=== PATIENT | female | born 1940 | race Caucasian/White ===

== ENCOUNTER → 2017-10-05 | Outpatient (CLI) | payer OTHER ==
[~2017-10-05] MED LIST: ACET325 PO; ACET325S PR; ACYC800 PO; ALBU.083IS IH; ALBU8HFA2 INH; ALBU90OI6 INH; ALBU90OI61 INH; ARTTEAOPSB OP; ASCO500 PO; Albuterol2.5 MG/0.5 INH; Artificial Tear15 M4 BOTHEYES; BACL10 PO; BIOTENE PBF473 ML MM; BUME1 PO; CALCIT950 PO; CALCIUM CITRAT1 EAC4 PO; CARB100ER PO; CARB200 PO; CARBLEV250 PO; CEPH500 PO; CETI10 PO; CHOL10002 PO; CIPR500 PO; CLON1 PO; COD LIVER OIL1 EACH PO; CYAN1000 PO; CYCL10 PO; Carbidopa-Levo1 EAC2 PO; Cranberry500 MG PO; DOCU100 PO; FAMO20 PO; FIBER GUMMIES1 EACH PO; FURO20 PO; FURO40 PO; GABA100 PO; GAVILAX17 GM PO; HYDACE5 PO; HYDCOR1TC TOP; HYDR1TAB94 PO; K-Phos Origina500 MG PO; L-LYSINE500 MG PO; LAVAP17G PO; LIDOCAINE1 EACH TOP; LISI5 PO; LO-DOSE ASPIRIN81 MG PO; Levaquin500 MG PO; METO2.5 PO; METO25ER PO; MULVITMINF PO; Mucinex600 MG; NITRSPRAY SL; OMEP20ER PO; OPTLUBOPO OP; Opcon-A Eye Dro15 M1 BOTHEYES; PAROEX473 ML MM; POLY17UD PO; POTA10T PO; POTCHL10ER PO; PROC5 PO; PROP30DR; ROPI1 PO; SENN187 PO; SERT50 PO; TOCO1000 PO; TRAM50 PO; TRIM100 PO; Ultram50 MG PO; VIT1CAPS12; VITAMIN D-32000 UNI1 PO; Ventolin Soln3 ML INH; Vitamin C100 M1 PO; XARELTO20 MG PO; [UNRECOGNIZED DRUG - OTHER]
[2017-10-05 14:52] LABS: Bilirubin, Urine Neg (Neg); Blood, Urine 2+ (Neg); Glucose Qualitative, Urine Neg (Neg); Ketones, Urine 1+ (Neg); Leukocyte Esterase, Urine 1+ (Neg); Nitrite, Urine Neg (Neg); Protein, Urine Neg (Neg); Urobilinogen, Urine NORM (Normal)
[2017-10-05 14:58] LABS: Appearance, Urine Clear (Clear); Color, Urine Yellow (P-Yellow)
[2017-10-05 14:59] LABS: Red Blood Cells, Urine 0-2 /hpf (0-2)
[2017-10-05 15:00] LABS: Bacteria Mod /hpf; Mucus Light (0-Heavy); Squamous Epithelial Cells Few /hpf (Few)
== END | disposition home or self-care (01) ==
LOC: LAB RH 13:45 → LAB SHORT 13:45 → EDSTATUS 10-06 10:32
PROVIDERS: Legal Medicine
DX: N39.0 Urinary tract infection, site not specified (principal)
CPT/HCPCS: 81001; 87077; 87086; 87186

== ENCOUNTER 2018-01-29 03:14 | Inpatient (IN) | payer OTHER ==
[~2018-01-29] VITALS: Ht 172.7 cm; Wt 65.8 kg
[~2018-01-29 03:14] MED LIST changes: -DOCU100 PO; -K-Phos Origina500 MG PO; -Levaquin500 MG PO; -Mucinex600 MG; +Opcon-A Eye Dro15 M1; -Opcon-A Eye Dro15 M1 BOTHEYES; -SENN187 PO
[2018-01-29] MEDS ORDERED: METO25ER PO (03:32)
[2018-01-29] MEDS ORDERED: SENN187 PO (03:36)
[2018-01-29] MEDS ORDERED: DOCU100 PO (03:40)
[2018-01-29 03:43] LABS: BASOPHILS ABSOLUTE AUTO 0.02 K/mm3 (0.00-0.23); BASOPHILS PERCENT AUTO 0 % (0-2); EOSINOPHILS ABSOLUTE AUTO 0.06 K/mm3 (0.00-0.68); EOSINOPHILS PERCENT AUTO 1 % (0-6); Hematocrit 45.7 % (33.0-51.0); Hemoglobin 14.6 g/dL (11.5-16.0); IMMATURE GRAN ABSOLUTE AUTO 0.03 K/mm3 (0.00-0.10); IMMATURE GRAN PERCENT AUTO 0 % (0-1); LYMPHOCYTES ABSOLUTE AUTO 2.38 K/mm3 (0.84-5.20); LYMPHOCYTES PERCENT AUTO 23 % (21-46); MONOCYTES PERCENT AUTO 6 % (4-13); Mean Corpuscular HGB 31.1 pg (26.0-34.0); Mean Corpuscular HGB Conc 31.9 g/dL (31.5-36.5); Mean Corpuscular Volume 97 fL (80-100); Mean Platelet Volume 9.9 fL (9.1-12.4); NEUTROPHILS ABSOLUTE AUTO 7.47 K/mm3 (1.96-9.15); NEUTROPHILS PERCENT AUTO 71 % (41-73); Platelet Count 190 K/mm3 (150-400); RDW Coefficient Variation 12.9 % (11.7-14.2); RDW Standard Deviation 46.5 fL (35.1-46.3); White Blood Cell Count 10.56 K/mm3 (4.00-11.30)
[2018-01-29 04:01] LABS: Albumin, Blood 3.4 g/dL (3.4-5.0); Albumin/Globulin Ratio 0.8 (0.8-1.8); Bilirubin, Total 0.6 mg/dL (0.1-1.0); Bun/Creatinine Ratio 19.6 (12.0-20.0); Calcium, Blood 8.5 mg/dL (8.5-10.1); Creatinine, Blood 1.12 mg/dL (0.40-1.00); Globulin, Blood 4.3 g/dL (2.2-4.0); Potassium, Blood 4.3 mmol/L (3.5-5.5); Total Protein, Blood 7.7 g/dL (6.4-8.2); Troponin I 0.33 ng/mL (0.000-0.040)
[2018-01-29 06:36] LABS: Base Excess Venous 6.9 mmol/L; Bicarbonate Venous 28.1 mmol/L (24.0-30.0); PCO2 Venous 56.7 mmHg (38-42); PO2 Venous 31.4 mmHg (38-42); pH Blood Venous 7.36 (7.34-7.37)
[2018-01-30 18:12] LABS: U Amphetamine Screen Not Detected; U Barbituate Screen Not Detected; U Benzodiazapine Screen Not Detected; U Buprenorphine Screen Not Detected; U Cannabinoids Screen Not Detected; U Cocaine Screen Not Detected; U Methadone Screen Not Detected; U Methamphetamine Screen Not Detected; U Opiates Screen Not Detected; U Oxycodone Screen Not Detected; U Phencyclidine Screen Not Detected; U Propoxyphene Screen Not Detected
== END 2018-01-31 16:26 | disposition home or self-care (01) | DRG 189 ==
LOC: ER 03:14 → MEDS 03:15
PROVIDERS: Emergency Medicine; Internal Medicine
DX: J96.01 Acute respiratory failure with hypoxia (principal); G93.40 Encephalopathy, unspecified; G25.81 Restless legs syndrome; I48.91 Unspecified atrial fibrillation; J44.9 Chronic obstructive pulmonary disease, unspecified; F03.90 Unspecified dementia, unspecified severity, without behavioral disturbance, psychotic disturbance, mood disturbance, and anxiety; I11.0 Hypertensive heart disease with heart failure; I50.9 Heart failure, unspecified; M19.90 Unspecified osteoarthritis, unspecified site; G62.9 Polyneuropathy, unspecified; G50.0 Trigeminal neuralgia; K21.9 Gastro-esophageal reflux disease without esophagitis; R13.10 Dysphagia, unspecified; Z66 Do not resuscitate; Z79.82 Long term (current) use of aspirin; Z79.899 Other long term (current) drug therapy
CPT/HCPCS: 36415; 71046; 80053; 82803; 83880; 84484; 85025; 87070; 87205; 92610; 93005; 93010; 94760; 94762; 96365; 99285; G8996; G8997; J0696

== ENCOUNTER 2018-02-27 19:50 | Observation (INO) | payer OTHER ==
[~2018-02-27] VITALS: Ht 180.3 cm; Wt 73.4 kg
[~2018-02-27 19:50] MED LIST changes: +DOCU100 PO; -Opcon-A Eye Dro15 M1; +Opcon-A Eye Dro15 M1 BOTHEYES; +SENN187 PO
[2018-02-27] MEDS ORDERED: K-Phos Origina500 MG PO (20:13)
[2018-02-27] MEDS ORDERED: FURO20 PO (20:15)
[2018-02-27] MEDS ORDERED: Mucinex600 MG (20:18)
[2018-02-27 20:46] LABS: BASOPHILS ABSOLUTE AUTO 0.02 K/mm3 (0.00-0.23); BASOPHILS PERCENT AUTO 0 % (0-2); EOSINOPHILS ABSOLUTE AUTO 0.11 K/mm3 (0.00-0.68); EOSINOPHILS PERCENT AUTO 1 % (0-6); Hematocrit 36.1 % (33.0-51.0); Hemoglobin 11.7 g/dL (11.5-16.0); IMMATURE GRAN ABSOLUTE AUTO 0.06 K/mm3 (0.00-0.10); IMMATURE GRAN PERCENT AUTO 1 % (0-1); LYMPHOCYTES ABSOLUTE AUTO 1.64 K/mm3 (0.84-5.20); LYMPHOCYTES PERCENT AUTO 14 % (21-46); MONOCYTES ABSOLUTE AUTO 0.69 K/mm3 (0.16-1.47); MONOCYTES PERCENT AUTO 6 % (4-13); Mean Corpuscular HGB Conc 32.4 g/dL (31.5-36.5); Mean Corpuscular Volume 96 fL (80-100); Mean Platelet Volume 9.9 fL (9.1-12.4); NEUTROPHILS ABSOLUTE AUTO 9.37 K/mm3 (1.96-9.15); NEUTROPHILS PERCENT AUTO 79 % (41-73); Platelet Count 268 K/mm3 (150-400); RDW Coefficient Variation 12.6 % (11.7-14.2); RDW Standard Deviation 43.8 fL (35.1-46.3); Red Blood Cell Count 3.78 M/mm3 (3.80-5.20); White Blood Cell Count 11.89 K/mm3 (4.00-11.30)
[2018-02-27 21:00] LABS: Alanine Aminotransfer (ALT/SGP 17 U/L (12-78); Albumin, Blood 2.7 g/dL (3.4-5.0); Albumin/Globulin Ratio 0.7 (0.8-1.8); Alk Phos 84 U/L (50-136); Anion Gap 7 mmol/L (6-16); Aspartate Aminotrans (AST/SGOT 22 U/L (12-37); Bilirubin, Total 0.2 mg/dL (0.1-1.0); Blood Urea Nitrogen 22 mg/dL (8-24); Bun/Creatinine Ratio 25.2 (12.0-20.0); CO2, Blood 28 mmol/L (21-32); Chloride, Blood 104 mmol/L (98-108); Creatinine, Blood 0.87 mg/dL (0.40-1.00); Globulin, Blood 4.1 g/dL (2.2-4.0); Glomerular Filtration Rate >60 (60-); Glucose, Blood 142 mg/dL (70-99); Potassium, Blood 4.3 mmol/L (3.5-5.5); Sodium, Blood 139 mmol/L (136-145); Total Protein, Blood 6.8 g/dL (6.4-8.2)
[2018-02-27 22:01] LABS: Source, Urine Clean Catch
[2018-02-27 22:20] LABS: Bilirubin, Urine Neg (Neg); Blood, Urine 2+ (Neg); Glucose Qualitative, Urine Neg (Neg); Ketones, Urine Neg (Neg); Leukocyte Esterase, Urine 2+ (Neg); Nitrite, Urine Neg (Neg); Protein, Urine 2+ (Neg); Specific Gravity, Urine 1.015 (1.003-1.022); Urobilinogen, Urine NORM (Normal)
[2018-02-27 22:32] LABS: Amorphous Mod (0-Heavy); Appearance, Urine Turbid (Clear); Bacteria Many /hpf; Color, Urine Pale Yellow (P-Yellow); Red Blood Cells, Urine 0-2 /hpf (0-2); Squamous Epithelial Cells Many /hpf (Few); White Blood Cells, Urine 25-50 /hpf (0-5)
[2018-02-28 05:09] LABS: BASOPHILS ABSOLUTE AUTO 0.03 K/mm3 (0.00-0.23); BASOPHILS PERCENT AUTO 0 % (0-2); EOSINOPHILS PERCENT AUTO 5 % (0-6); Hematocrit 32.6 % (33.0-51.0); Hemoglobin 10.3 g/dL (11.5-16.0); IMMATURE GRAN ABSOLUTE AUTO 0.02 K/mm3 (0.00-0.10); IMMATURE GRAN PERCENT AUTO 0 % (0-1); LYMPHOCYTES ABSOLUTE AUTO 1.87 K/mm3 (0.84-5.20); LYMPHOCYTES PERCENT AUTO 23 % (21-46); MONOCYTES ABSOLUTE AUTO 0.79 K/mm3 (0.16-1.47); MONOCYTES PERCENT AUTO 10 % (4-13); Mean Corpuscular HGB 30.9 pg (26.0-34.0); Mean Corpuscular HGB Conc 31.6 g/dL (31.5-36.5); Mean Corpuscular Volume 98 fL (80-100); Mean Platelet Volume 9.1 fL (9.1-12.4); NEUTROPHILS PERCENT AUTO 61 % (41-73); Platelet Count 200 K/mm3 (150-400); RDW Coefficient Variation 12.6 % (11.7-14.2); RDW Standard Deviation 45.4 fL (35.1-46.3); Red Blood Cell Count 3.33 M/mm3 (3.80-5.20); White Blood Cell Count 8.01 K/mm3 (4.00-11.30)
[2018-02-28 05:31] LABS: Anion Gap 5 mmol/L (6-16); Blood Urea Nitrogen 19 mg/dL (8-24); Bun/Creatinine Ratio 24.9 (12.0-20.0); CO2, Blood 27 mmol/L (21-32); Calcium, Blood 7.4 mg/dL (8.5-10.1); Chloride, Blood 106 mmol/L (98-108); Creatinine, Blood 0.76 mg/dL (0.40-1.00); Glomerular Filtration Rate >60 (60-); Glucose, Blood 78 mg/dL (70-99); Potassium, Blood 4.4 mmol/L (3.5-5.5); Sodium, Blood 138 mmol/L (136-145)
[2018-03-01 05:36] LABS: BASOPHILS ABSOLUTE AUTO 0.03 K/mm3 (0.00-0.23); BASOPHILS PERCENT AUTO 0 % (0-2); EOSINOPHILS ABSOLUTE AUTO 0.49 K/mm3 (0.00-0.68); EOSINOPHILS PERCENT AUTO 7 % (0-6); Hematocrit 35.5 % (33.0-51.0); Hemoglobin 11.3 g/dL (11.5-16.0); IMMATURE GRAN ABSOLUTE AUTO 0.02 K/mm3 (0.00-0.10); IMMATURE GRAN PERCENT AUTO 0 % (0-1); LYMPHOCYTES ABSOLUTE AUTO 1.78 K/mm3 (0.84-5.20); LYMPHOCYTES PERCENT AUTO 24 % (21-46); MONOCYTES ABSOLUTE AUTO 0.75 K/mm3 (0.16-1.47); MONOCYTES PERCENT AUTO 10 % (4-13); Mean Corpuscular HGB Conc 31.8 g/dL (31.5-36.5); Mean Corpuscular Volume 98 fL (80-100); Mean Platelet Volume 9.8 fL (9.1-12.4); NEUTROPHILS ABSOLUTE AUTO 4.24 K/mm3 (1.96-9.15); NEUTROPHILS PERCENT AUTO 58 % (41-73); Platelet Count 242 K/mm3 (150-400); RDW Coefficient Variation 12.4 % (11.7-14.2); RDW Standard Deviation 44.4 fL (35.1-46.3); Red Blood Cell Count 3.64 M/mm3 (3.80-5.20); White Blood Cell Count 7.31 K/mm3 (4.00-11.30)
[2018-03-01 05:52] LABS: Percent Saturation 33.7 % (15.0-50.0)
[2018-03-01 06:00] LABS: Alanine Aminotransfer (ALT/SGP <6 U/L (12-78); Albumin, Blood 2.3 g/dL (3.4-5.0); Albumin/Globulin Ratio 0.6 (0.8-1.8); Alk Phos 69 U/L (50-136); Anion Gap 6 mmol/L (6-16); Aspartate Aminotrans (AST/SGOT 15 U/L (12-37); Bilirubin, Total 0.3 mg/dL (0.1-1.0); Blood Urea Nitrogen 13 mg/dL (8-24); Bun/Creatinine Ratio 16.1 (12.0-20.0); CO2, Blood 26 mmol/L (21-32); Calcium, Blood 8.1 mg/dL (8.5-10.1); Chloride, Blood 106 mmol/L (98-108); Creatinine, Blood 0.81 mg/dL (0.40-1.00); Globulin, Blood 3.9 g/dL (2.2-4.0); Glomerular Filtration Rate >60 (60-); Glucose, Blood 86 mg/dL (70-99); Potassium, Blood 4.4 mmol/L (3.5-5.5); Sodium, Blood 138 mmol/L (136-145); Total Protein, Blood 6.2 g/dL (6.4-8.2)
[2018-03-01] MEDS ORDERED: Levaquin500 MG PO (11:23)
== END 2018-03-01 11:28 | disposition home or self-care (01) ==
LOC: ER 19:50 → MEDS 19:51 → ER 22:08 → MEDS 22:46
PROVIDERS: Emergency Medicine; Internal Medicine; Nurse Practitioner Acute Care
DX: J18.9 Pneumonia, unspecified organism (principal); I48.91 Unspecified atrial fibrillation; J44.9 Chronic obstructive pulmonary disease, unspecified; I10 Essential (primary) hypertension; N39.0 Urinary tract infection, site not specified; G20 Parkinson's disease; G40.909 Epilepsy, unspecified, not intractable, without status epilepticus; G25.81 Restless legs syndrome; M19.90 Unspecified osteoarthritis, unspecified site; K21.9 Gastro-esophageal reflux disease without esophagitis; F32.9 Major depressive disorder, single episode, unspecified; Z79.01 Long term (current) use of anticoagulants; Z79.82 Long term (current) use of aspirin; Z79.899 Other long term (current) drug therapy
CPT/HCPCS: 36415; 51701; 71046; 80048; 80053; 81001; 82728; 83540; 83550; 83605; 84443; 85025; 87077; 87086; 87186; 87449; 93005; 93010; 94667; 96361; 96365; 96374; 96376; 99285; G0378; J0456; J0696; J1956; J7030; J7050

== ENCOUNTER → 2018-05-02 | Outpatient (CLI) | payer OTHER ==
[~2018-05-02] MED LIST changes: +K-Phos Origina500 MG PO; +Levaquin500 MG PO; +Mucinex600 MG
[2018-05-02 10:28] LABS: Bilirubin, Urine Neg (Neg); Blood, Urine 2+ (Neg); Glucose Qualitative, Urine Neg (Neg); Ketones, Urine Neg (Neg); Leukocyte Esterase, Urine 3+ (Neg); Nitrite, Urine Neg (Neg); Protein, Urine Neg (Neg); Urobilinogen, Urine NORM (Normal)
[2018-05-02 11:32] LABS: Appearance, Urine Hazy (Clear); Color, Urine Yellow (P-Yellow)
[2018-05-02 11:36] LABS: Bacteria Mod /hpf; Red Blood Cells, Urine 0-2 /hpf (0-2); Squamous Epithelial Cells Few /hpf (Few)
== END ==
LOC: LAB 10:20 → LAB SHORT 10:20
PROVIDERS: Legal Medicine
DX: Z09 Encounter for follow-up examination after completed treatment for conditions other than malignant neoplasm (principal); Z87.440 Personal history of urinary (tract) infections
CPT/HCPCS: 81001; 87077; 87086; 87186

== ENCOUNTER → 2018-05-23 | Outpatient (CLI) | payer OTHER ==
[2018-05-23 14:31] LABS: Appearance, Urine Clear (Clear); Bilirubin, Urine Neg (Neg); Blood, Urine Neg (Neg); Color, Urine Yellow (P-Yellow); Glucose Qualitative, Urine Neg (Neg); Ketones, Urine Neg (Neg); Leukocyte Esterase, Urine 1+ (Neg); Nitrite, Urine Pos (Neg); Protein, Urine Neg (Neg); Urobilinogen, Urine NORM (Normal)
[2018-05-23 15:06] LABS: Bacteria Many /hpf; Red Blood Cells, Urine 0-2 /hpf (0-2); Squamous Epithelial Cells Mod /hpf (Few)
== END | disposition home or self-care (01) ==
LOC: LAB 08:11 → LAB SHORT 08:11
PROVIDERS: Legal Medicine
DX: N39.0 Urinary tract infection, site not specified (principal)
CPT/HCPCS: 81001; 87077; 87086; 87186

== ENCOUNTER 2018-11-01 12:51 | Inpatient (IN) | payer OTHER ==
[~2018-11-01] VITALS: Ht 167.6 cm; Wt 89.4 kg
[2018-11-01 14:16] LABS: Source, Urine Catheter
[2018-11-01 14:25] LABS: Bilirubin, Urine Neg (Neg); Blood, Urine 2+ (Neg); Glucose Qualitative, Urine Neg (Neg); Ketones, Urine Neg (Neg); Nitrite, Urine Neg (Neg); Protein, Urine 1+ (Neg); Specific Gravity, Urine 1.015 (1.003-1.022); Urobilinogen, Urine NORM (Normal)
[2018-11-01 14:30] LABS: Leukocyte Esterase, Urine 1+ (Neg)
[2018-11-01 14:30] LABS: BASOPHILS ABSOLUTE AUTO 0.02 K/mm3 (0.00-0.23); BASOPHILS PERCENT AUTO 0 % (0-2); EOSINOPHILS PERCENT AUTO 3 % (0-6); Hematocrit 40.8 % (33.0-51.0); Hemoglobin 13.5 g/dL (11.5-16.0); IMMATURE GRAN ABSOLUTE AUTO 0.03 K/mm3 (0.00-0.10); IMMATURE GRAN PERCENT AUTO 0 % (0-1); LYMPHOCYTES ABSOLUTE AUTO 1.62 K/mm3 (0.84-5.20); LYMPHOCYTES PERCENT AUTO 18 % (21-46); MONOCYTES ABSOLUTE AUTO 0.86 K/mm3 (0.16-1.47); MONOCYTES PERCENT AUTO 10 % (4-13); Mean Corpuscular HGB 31.4 pg (26.0-34.0); Mean Corpuscular HGB Conc 33.1 g/dL (31.5-36.5); Mean Corpuscular Volume 95 fL (80-100); Mean Platelet Volume 9.9 fL (9.1-12.4); NEUTROPHILS ABSOLUTE AUTO 6.08 K/mm3 (1.96-9.15); NEUTROPHILS PERCENT AUTO 68 % (41-73); Platelet Count 231 K/mm3 (150-400); RDW Coefficient Variation 11.9 % (11.7-14.2); RDW Standard Deviation 41.5 fL (35.1-46.3); White Blood Cell Count 8.91 K/mm3 (4.00-11.30)
[2018-11-01 14:37] LABS: Albumin, Blood 3.2 g/dL (3.4-5.0); Albumin/Globulin Ratio 0.7 (0.8-1.8); Bilirubin, Total 0.4 mg/dL (0.1-1.0); Bun/Creatinine Ratio 18.7 (12.0-20.0); Calcium, Blood 8.7 mg/dL (8.5-10.1); Creatinine, Blood 1.07 mg/dL (0.40-1.00); Globulin, Blood 4.6 g/dL (2.2-4.0); Potassium, Blood 4.5 mmol/L (3.5-5.5); Total Protein, Blood 7.8 g/dL (6.4-8.2)
[2018-11-01 14:39] LABS: Appearance, Urine Hazy (Clear); Color, Urine Yellow (P-Yellow)
[2018-11-01 14:42] LABS: Bacteria Many /hpf; Squamous Epithelial Cells Few /hpf (Few); White Blood Cells, Urine 0-2 /hpf (0-5)
--- NOTE | 2018-11-01 20:45 | NUR ---
ASSUMED CARE- PT ARRIVES TO U3 FROM ER VIA GURNEY. PT IS CURRENTLY ALERT AND OPENS EYES TO NAME, BUT DOES NOT RESPOND WITH WORDS, CONTINUOUSLY MOANING, ABLE TO MAKE OUT VERY FEW GARBLED WORDS, MOSTLY STATING "OH GOD". NOT FOLLOWING COMMANDS, BUT DOES WEAKLY GRAB FINGERS WHEN PLACED IN HER PALMS. PT IS RESTLESS IN BED AND MOVING FROM SIDE TO SIDE, WITHDRAWS L LEG WHEN MOVED, MOANS AND GRIMACES. PT HAS GENERALIZED WEAKNESS, BUT NOTED THAT L SIDE IS MORE WEAK THAN RIGHT. L FACIAL DROOP NOTED. CARDIZEM CURRENTLY INFUSING AT 15 MG/HR UPON ARRIVAL WITH HEART RATE OF 140. ALL OTHER VSS. DAUGHTER AND GRANDAUGHTER AT BEDSIDE, STATE THAT PT IS NORMALLY ALERT AND ORIENTED AT BASELINE. ALSO REPORT THAT PATIENT HAS MULTIPLE CHRONIC PAIN AND NERVE PAIN ISSUES THAT CAUSE HER TO REACT WITH CRYING AND MOANING WITH "[employer]"- REPORT THAT PRIMARY DOCTOR IS CURRENTLY TRYING DIFFERENT MEDICATION REGIMENS TO ASSIST WITH RESTLESS LEG AND NERVE PAIN. PT CURRENTLY LIVES IN AN [facility] AND HAS BEEN HAVING AMS OVER THE LAST COUPLE OF DAYS, PER CAREGIVER. ATTENDS IN PLACE FOR BASELINE INCONTINENCE. WILL CONTINUE WITH ADMISSION AND ASSESSMENT PER RECORD AND FAMILY MEMBERS. BED IN LOW POSITION, CALL LIGHT IN REACH. BED ALARM SET FOR SAFETY.
[2018-11-02 01:37] LABS: BASOPHILS ABSOLUTE AUTO 0.03 K/mm3 (0.00-0.23); BASOPHILS PERCENT AUTO 0 % (0-2); EOSINOPHILS ABSOLUTE AUTO 0.25 K/mm3 (0.00-0.68); EOSINOPHILS PERCENT AUTO 3 % (0-6); Hematocrit 39.1 % (33.0-51.0); Hemoglobin 12.9 g/dL (11.5-16.0); IMMATURE GRAN ABSOLUTE AUTO 0.03 K/mm3 (0.00-0.10); IMMATURE GRAN PERCENT AUTO 0 % (0-1); LYMPHOCYTES ABSOLUTE AUTO 1.98 K/mm3 (0.84-5.20); LYMPHOCYTES PERCENT AUTO 20 % (21-46); MONOCYTES ABSOLUTE AUTO 1.19 K/mm3 (0.16-1.47); MONOCYTES PERCENT AUTO 12 % (4-13); Mean Corpuscular HGB 31.6 pg (26.0-34.0); Mean Corpuscular Volume 96 fL (80-100); Mean Platelet Volume 9.3 fL (9.1-12.4); NEUTROPHILS ABSOLUTE AUTO 6.35 K/mm3 (1.96-9.15); NEUTROPHILS PERCENT AUTO 65 % (41-73); Platelet Count 238 K/mm3 (150-400); RDW Coefficient Variation 11.9 % (11.7-14.2); RDW Standard Deviation 42.3 fL (35.1-46.3); Red Blood Cell Count 4.08 M/mm3 (3.80-5.20); White Blood Cell Count 9.83 K/mm3 (4.00-11.30)
[2018-11-02 01:58] LABS: Albumin/Globulin Ratio 0.7 (0.8-1.8); Bilirubin, Total 0.4 mg/dL (0.1-1.0); Bun/Creatinine Ratio 19.8 (12.0-20.0); Calcium, Blood 8.1 mg/dL (8.5-10.1); Creatinine, Blood 1.11 mg/dL (0.40-1.00); Globulin, Blood 4.2 g/dL (2.2-4.0); Magnesium, Blood 1.8 mg/dL (1.6-2.4); Potassium, Blood 4.3 mmol/L (3.5-5.5); Total Protein, Blood 7.2 g/dL (6.4-8.2)
--- NOTE | 2018-11-02 02:00 | NUR ---
PHYSICIAN CONTACTED- PT CONTINUES TO HAVE HEART RATE IN THE 120-130'S WITH CARDIZEM DRIP INFUSING AT 15 MG/HR. 2100 MEDS HELD LAST NIGHT PER CLINICAL JUDGEMENT AND INABILITY OF PATIENT TO FOLLOW DIRECTION OR SWALLOW WITH PROMPTING. DR YOUSIF CONTACTED AND DISCUSSED PATIENT SITUATION. INFORMED PHYSICIAN THAT 2100 MEDS INCLUDED XARELTO, TEGRETOL, SINEMET, AND NEURONTIN. PHYSICIAN STATES THAT IT IS OK FOR PATIENT TO MISS 2100 DOSE OF MEDICATIONS. 1L FLUID BOLUS ORDERED, FOLLOWED BY 1L OF NS @ 100 ML/HR. WILL INPUT ORDERS AND ADMINISTER TO PATIENT.
[2018-11-02] MEDS ORDERED: NAPR500 PO (05:45)
[2018-11-02] MEDS ORDERED: DIAZ5 PO (05:47)
[2018-11-02] MEDS ORDERED: BACL10 PO (05:48)
--- NOTE | 2018-11-02 06:39 | NUR ---
SHIFT SUMMARY- PT MENTATION HAS NOT IMPROVED MUCH THROUGHOUT THE NIGHT, CONTINUES TO MOAN AND SAY "OH GOD", BUT SPEECH SLIGHTLY CLEARER. PT ALSO STARTING TO BE ABLE TO FOLLOW SOME COMMANDS WHEN BEING TURNED/CHANGED. ATTEMPTED USE OF PICTURE BOARD, BUT PATIENT WAS UNABLE TO EXPRESS NEEDS WHEN PROMPTED. ATTEMPTING TO REPOSITION FOR COMFORT, BUT UNABLE TO ASSESS SUCCESS. CARDIZEM DRIP TITRATED PER PROTOCOL. NO OTHER CHANGES NOTED FROM INITIAL ASSESSMENT. WILL CONTINUE TO MONOITOR AND REPORT TO ONCOMING RN. BED IN LOW POSITION, CALL LIGHT IN REACH. BED ALARM SET FOR SAFETY.
--- NOTE | 2018-11-02 07:57 | NUR ---
NURSING PCU DAYSHIFT: Assumed care of pt at approx 0700. [employer] [place] [employer] [place], moaining w/garbled speech, will make eye contact when pt's name is stated, unable to follow commands. General weakness noted, mild L facial droop, sensations appear intact. Skin is intact w/no breakdown noted, reddened area noted to L knee. Tele in place, NSR though aflutter was noted on tele at start of shift w/a conversion time of approx 0700, SBP 160's, no noted edema. L/S cta t/o, O2 sat mid 90's on 2L NC, no dyspnea or cough noted. Abd soft, BT+, incontinent of urine, attends in place. PIV x2, diltiazem gtt initially infusing at 5cc/hr, NS infusing at 100cc/hr. No s/s of acute dsitress at this time. Pt appears to have increased fearfulness w/inability to communicate. Call light in reach though frequent rounding will be required d/t confusion. Diltiazem gtt s/l. Awaiting rounding from PMD, cont to monitor for changes.
--- NOTE | 2018-11-02 17:25 | NUR ---
NURSING PCU DAYSHIFT SUMMARY: No significant changes noted t/o the shift. Daughter has remained at bedside t/o majority of the day, update provided and plan of care discussed. Pt continues to have garbled speech and constantly moans, though is now more responsive to staff and can provide 1-2 word responses at times. Seen by PMD this a.m., new d/o received. Fentanyl patch placed for pain management, minimal improvement seen. Continuing to use warm blankets, massage, and repositioning for comfort. Daughter denies any questions/needs at this time. Call light remains in reach, cont to monitor until rpt is given to NOC RN.
--- NOTE | 2018-11-03 05:31 | NUR ---
SHIFT SUMMARY: SWALLOW EVALUATION DONE, PATIENT ABLE TO HANDLE PUDDING/APPLESAUCE BUT HAS DIFFICULTY WITH THIN LIQUIDS. PATIENT ABLE TO FINISH 1 PUDDING CUP AND TAKE AN ORAL PAIN MEDICATION CRUSHED IN APPLESAUCE. PATIENT GAURDS LEFT KNEE AND CRIES OUT IN PAIN WITH TOUCH TO LEFT KNEE. PATIENT SPEECH STILL GARBLED BUT IMPROVING.
--- NOTE | 2018-11-03 08:44 | NUR ---
NURSING PCU DAYSHIFT: Assumed care of pt at approx 0700. Arouses to verbal stimuli, speech is slow and garbled at times though is able to provide 1-2 word answers fairly clearly, follow some commands, frequent moaning and crying. Skin is fragile w/no breakdown noted, reddened area/bruise present on L knee, L knee is swollen and tender. Tele in place, NSR, BP stable, trace general edema. L/S fairly cta t/o, respirations shallow, no noted cough, O2 sat stable on 2L NC. Abd SNT, BT+, incontinent of urine and stool, attends in place. PIV x2, NS TKO. Seen by PMD this, new d/o received, L knee xray to be completed. Pt able to tolerate FL PO intake this a.m. and swallow meds whole in applesauce w/no noted cough or other signs of aspiration. No s/s of acute distress, bed alarm set for safety purposes, cont to monitor for changes.
--- NOTE | 2018-11-03 18:08 | NUR ---
NURSING PCU DAYSHIFT SUMMARY: Pt has continued to improve t/o the shift and is able to converse more w/staff though remains confused w/garbled speech at times. Bedbath and linen change completed this a.m. which pt tolerated well. A.M. meds administered w/applesauce, no noted difficulty swallowing. Pt was fed meals and assisted w/ADL's. Mid shift pt became very tired and slept for several hours, mid-day med doses held d/t sleepiness. Pt is awake and visiting w/grandson at this time though is only able to make 3-4 word statements. No s/s of acute distress. Pt changed to medical status, bed assignment received, report provided to accepting RN. Cont to monitor until xfer is completed.
--- NOTE | 2018-11-03 18:56 | NUR ---
PT ARRIVED TO THE MEDICAL FLOOR FROM THE PCU, ALERT APPEARED TO BE BREATHING EASILY ON 2L/MIN O2, PT WAS ORIENTED TO THE CALL SYTEM, WILL GIVE REPORT TO NIGHT RN
--- NOTE | 2018-11-04 05:52 | NUR ---
SHIFT SUMMARY PT SLEPT WELL T/O NIGHT. VSS. PT AOX1 & CONFUSED @ TIMES. SPEECH IS SLURRED & GARBLED, ALTHOUGH THIS AM PT WAS ABLE TO STATE SHE HAD GONE PEE & NEEDED TO BE CHANGED. PT HAS ANSWERED YES/NO QUESTIONS APPROPRIATELY. NO S/S OF SOB OR N/V. PT DENIES PAIN BUT HAS MANY NON-VERBAL PAIN SYMPTOMS & MOANS, GRIMACES & EVEN STATED HER " LEGS & BACK HURT," PT MEDICATED 2X W/OXYCODONE PER ORDERS. PT TURNED Q2H PRN. CALL LIGHT IN REACH & WILL CONT. TO MONITOR PT UNTIL DAY SHIFT RN ASSUMES CARE.
--- NOTE | 2018-11-04 17:48 | NUR ---
SHIFT SUMMARY PATIENT HAS BEEN PLEASANT TODAY. MILDLY HYPERSOMNOLENT. PATIENTS FAMILY REPORTS THAT SHE ONLY TAKES 100MG OF GABAPENTIN TID INSTEAD OF 600MG GABAPENTIN TID. THE PATIENT IS NOW RESTING, BECOMING MORE CLEAR. PATIENTS FAMILY MEMBER IS WORRIED THAT SHE IS BEING OVER MEDICATED. PATIENT PAINFUL TO TOUCH DUE TO NEUROPATHY.
[2018-11-05 05:35] LABS: BASOPHILS ABSOLUTE AUTO 0.03 K/mm3 (0.00-0.23); BASOPHILS PERCENT AUTO 0 % (0-2); EOSINOPHILS ABSOLUTE AUTO 0.21 K/mm3 (0.00-0.68); EOSINOPHILS PERCENT AUTO 3 % (0-6); Hematocrit 35.6 % (33.0-51.0); Hemoglobin 10.9 g/dL (11.5-16.0); IMMATURE GRAN ABSOLUTE AUTO 0.03 K/mm3 (0.00-0.10); IMMATURE GRAN PERCENT AUTO 0 % (0-1); LYMPHOCYTES ABSOLUTE AUTO 1.83 K/mm3 (0.84-5.20); LYMPHOCYTES PERCENT AUTO 22 % (21-46); MONOCYTES PERCENT AUTO 13 % (4-13); Mean Corpuscular HGB 30.5 pg (26.0-34.0); Mean Corpuscular HGB Conc 30.6 g/dL (31.5-36.5); Mean Platelet Volume 9.6 fL (9.1-12.4); NEUTROPHILS ABSOLUTE AUTO 5.11 K/mm3 (1.96-9.15); NEUTROPHILS PERCENT AUTO 62 % (41-73); Platelet Count 263 K/mm3 (150-400); RDW Coefficient Variation 11.9 % (11.7-14.2); RDW Standard Deviation 43.8 fL (35.1-46.3); Red Blood Cell Count 3.57 M/mm3 (3.80-5.20); White Blood Cell Count 8.31 K/mm3 (4.00-11.30)
[2018-11-05 05:36] LABS: Mean Corpuscular Volume 100 fL (80-100)
--- NOTE | 2018-11-05 05:39 | NUR ---
VSS, AFEBRILE, A/O x 2, CONFUSED/FORGETFUL AT TIMES, L SIDE FACIAL DROOP AND L SIDE WEAKNESS, BRUISE ON L KNEE S/P FALL AT HOME, INCONT B/B, PUREE DIET, MEDS WHOLE IN APPLESAUCE, PT C/O OF SEVERE PAIN AT CHANGE OF SHIFT, PAIN MEDS ARE AVAILABLE MORE OFTEN THAN SHE HAS HAD THEM, PT SLEPT WELL AFTER HER PAIN WAS ADDRESSED. DAUGHTER CALLED FOR AN UPDATE.
[2018-11-05 05:59] LABS: Magnesium, Blood 2.2 mg/dL (1.6-2.4)
[2018-11-05 06:02] LABS: Alanine Aminotransfer (ALT/SGP 8 U/L (12-78); Albumin, Blood 2.5 g/dL (3.4-5.0); Albumin/Globulin Ratio 0.6 (0.8-1.8); Alk Phos 86 U/L (50-136); Anion Gap 9 mmol/L (6-16); Aspartate Aminotrans (AST/SGOT 35 U/L (12-37); Bilirubin, Total 0.4 mg/dL (0.1-1.0); Blood Urea Nitrogen 31 mg/dL (8-24); Bun/Creatinine Ratio 32.8 (12.0-20.0); CO2, Blood 27 mmol/L (21-32); Calcium, Blood 8.5 mg/dL (8.5-10.1); Chloride, Blood 105 mmol/L (98-108); Creatinine, Blood 0.94 mg/dL (0.40-1.00); Globulin, Blood 4.5 g/dL (2.2-4.0); Glomerular Filtration Rate >60 (60-); Glucose, Blood 105 mg/dL (70-99); Potassium, Blood 4.3 mmol/L (3.5-5.5); Sodium, Blood 141 mmol/L (136-145)
--- NOTE | 2018-11-05 18:06 | NUR ---
SHIFT SUMMARY PATIENT PLEASANT. HAS ANTIBIOTICS DAILY. STILL NOT GETTING UP. HER DIET HAS BEEN ADVANCED TO MECHANICAL SOFT. PATIENT MORE ALERT AND ORIENTED TODAY. FENTANYL PATCH WAS PLACED THIS AM. SHE HAS HAD A BEDBATH AND WILL CONTINUE TO MONITOR.
--- NOTE | 2018-11-06 05:12 | NUR ---
ALERT, FORGETFUL, HYPOTENSIVE, HOLD METOPROLOL FOR SBP <100, 2100 DOSE HELD FOR LOW BP, L SIDE WEAKNESS/FACIAL DROOP, INCONT B/B, BRUISE L KNEE S/P FALL AT HOME, 18G R AC, 20G L FA, MEDS WHOLE IN APPLESAUCE.
[2018-11-06 05:25] LABS: BASOPHILS ABSOLUTE AUTO 0.03 K/mm3 (0.00-0.23); BASOPHILS PERCENT AUTO 0 % (0-2); EOSINOPHILS ABSOLUTE AUTO 0.55 K/mm3 (0.00-0.68); EOSINOPHILS PERCENT AUTO 7 % (0-6); Hematocrit 34.8 % (33.0-51.0); Hemoglobin 10.7 g/dL (11.5-16.0); IMMATURE GRAN ABSOLUTE AUTO 0.02 K/mm3 (0.00-0.10); IMMATURE GRAN PERCENT AUTO 0 % (0-1); LYMPHOCYTES ABSOLUTE AUTO 1.81 K/mm3 (0.84-5.20); LYMPHOCYTES PERCENT AUTO 22 % (21-46); MONOCYTES ABSOLUTE AUTO 1.04 K/mm3 (0.16-1.47); MONOCYTES PERCENT AUTO 12 % (4-13); Mean Corpuscular HGB 31.2 pg (26.0-34.0); Mean Corpuscular HGB Conc 30.7 g/dL (31.5-36.5); Mean Corpuscular Volume 102 fL (80-100); Mean Platelet Volume 9.8 fL (9.1-12.4); NEUTROPHILS ABSOLUTE AUTO 4.98 K/mm3 (1.96-9.15); NEUTROPHILS PERCENT AUTO 59 % (41-73); Platelet Count 257 K/mm3 (150-400); RDW Coefficient Variation 11.9 % (11.7-14.2); RDW Standard Deviation 44.4 fL (35.1-46.3); Red Blood Cell Count 3.43 M/mm3 (3.80-5.20); White Blood Cell Count 8.43 K/mm3 (4.00-11.30)
[2018-11-06 06:04] LABS: Albumin, Blood 2.3 g/dL (3.4-5.0); Albumin/Globulin Ratio 0.6 (0.8-1.8); Bilirubin, Total 0.3 mg/dL (0.1-1.0); Bun/Creatinine Ratio 33.9 (12.0-20.0); Creatinine, Blood 1.12 mg/dL (0.40-1.00); Globulin, Blood 4.1 g/dL (2.2-4.0); Potassium, Blood 4.3 mmol/L (3.5-5.5); Total Protein, Blood 6.4 g/dL (6.4-8.2)
--- NOTE | 2018-11-06 18:07 | NUR ---
SHIFT SUMMARY PATIENT PLEASANT. NO ACUTE CONCERNS AT THIS TIME. AWAITING DISCHARGE PLAN. PATIENT HAS IV ANTIBIOTICS. IS ABLE TO START FEEDING HERSELF WITH SUPERVISION. DID WELL WITH DINNER TONIGHT.
[2018-11-07 04:53] LABS: BASOPHILS ABSOLUTE AUTO 0.03 K/mm3 (0.00-0.23); BASOPHILS PERCENT AUTO 1 % (0-2); EOSINOPHILS ABSOLUTE AUTO 0.61 K/mm3 (0.00-0.68); EOSINOPHILS PERCENT AUTO 10 % (0-6); Hemoglobin 10.3 g/dL (11.5-16.0); IMMATURE GRAN ABSOLUTE AUTO 0.03 K/mm3 (0.00-0.10); IMMATURE GRAN PERCENT AUTO 1 % (0-1); LYMPHOCYTES ABSOLUTE AUTO 1.63 K/mm3 (0.84-5.20); LYMPHOCYTES PERCENT AUTO 26 % (21-46); MONOCYTES ABSOLUTE AUTO 0.72 K/mm3 (0.16-1.47); MONOCYTES PERCENT AUTO 11 % (4-13); Mean Corpuscular HGB 31.2 pg (26.0-34.0); Mean Corpuscular HGB Conc 31.2 g/dL (31.5-36.5); Mean Corpuscular Volume 100 fL (80-100); Mean Platelet Volume 9.7 fL (9.1-12.4); NEUTROPHILS PERCENT AUTO 52 % (41-73); Platelet Count 283 K/mm3 (150-400); RDW Coefficient Variation 11.6 % (11.7-14.2); RDW Standard Deviation 42.6 fL (35.1-46.3); White Blood Cell Count 6.32 K/mm3 (4.00-11.30)
--- NOTE | 2018-11-07 05:25 | NUR ---
SHIFT SUMMARY PT ADMITTED FOR A-FIB. LIMITED CODE STATUS-DEFIBRILLATION. MECHANICAL SOFT, GROUND META-CARDIAC DIET WITH NO MIXED CONSISTENCY AND ASPIRATION PRECAUTIONS. UPRIGHT AT 90 DEGREES FOR ALL EATING, DRINKING, AND MEDICATIONS. THE PT IS A FEEDER. MEDICATIONS WHOLE IN APPLESAUCE 1 AT A TIME. XARELTO FOR DVT. CONTACT ISOLATION FOR ESBL IN THE URINE. 20G IV TO R FA. THE PT HAS NOT TRANSFERED SO FAR THIS SHIFT. PER REPORT THE PT IS BEDBOUND AND REFUSING THERAPY. THE PT ASKED THIS NIGHT TO HAVE HER HEARING AIDS REMOVED SO THAT SHE COULD SLEEP WITHOUT THE NOISE. THE PT APPEARED TO SLEEP VERY WELL THIS NIGHT WITH NO APPARENT SIGNS OF ACUTE DISTRESS. FREQUENT VISUAL CHECKS IT DOES NOT APPEAR THAT PT USES CALL LIGHT. SOME GARBLED SPEECH MAKES IT DIFFICULT TO UNDERSTAND PT WHEN SHE SPEAKS. FORGETFUL AND CONFUSED AT TIMES BUT ABLE TO MAKE BASIC NEEDS KNOWN.
[2018-11-07 05:44] LABS: Albumin, Blood 2.1 g/dL (3.4-5.0); Albumin/Globulin Ratio 0.5 (0.8-1.8); Bilirubin, Total 0.3 mg/dL (0.1-1.0); Bun/Creatinine Ratio 38.7 (12.0-20.0); Calcium, Blood 7.9 mg/dL (8.5-10.1); Creatinine, Blood 1.06 mg/dL (0.40-1.00); Globulin, Blood 3.9 g/dL (2.2-4.0); Potassium, Blood 4.6 mmol/L (3.5-5.5)
--- NOTE | 2018-11-07 11:14 | NUR ---
TALKED TO ABOUT PT/OT WHICH HAS NOT BEEN ORDERED AND LIDOCAINE PATCHES FOR KNEE. OK TO ORDER.
--- NOTE | 2018-11-07 16:12 | NUR ---
FENTANYL PATCH TAKEN OFF PATIENT AND DISPOSED OF.
--- NOTE | 2018-11-07 17:28 | NUR ---
PATIENT ALERT AND ORIENTED. FED HERSELF FOR BREAKFAST W/SUPERVISION. DOES NOT USE LEFT HAND MUCH. C/O PAIN TO LEFT KNEE. LIDOCAINE PATCHES PLACED. PT/OT EVAL TODAY. MECH LIFT. CHANGED AND TURNED PRN. [place]. NEW IV PLACED. ABLE TO MAKE NEEDS KNOWN. BED IN LOW POSITION. CALL LIGHT WITHIN REACH. WILL CONTINUE TO MONITOR.
--- NOTE | 2018-11-08 04:02 | NUR ---
SHIFT SUMMARY: PT IS ALERT AND ORIENTED. PT IS CALM AND COOPERATIVE WITH CARE. PT IS VERY HARD OF HEARING, BL HEARING AIDES. PT IS A MAX ASSIST FOR TRANSFERS, NOT OUT OF BED OVERNIGHT. PT HAD INCONTINENT VOIDS, CHANGED AND CLEANED NEEDED. PT APPEARS TO BE IN PAIN AT TIMES BUT REFUSES PAIN MEDICATION. PT DENIES NAUSEA, VOMITING, AND SOB. PT SLEPT INTERMITTENTLY THROUGHOUT THE NIGHT. NO ACUTE CHANGES OR COMPLICATIONS. BED IN LOW POSITION, CALL LIGHT WITHIN REACH. WILL REPORT TO DAY NURSE.
--- NOTE | 2018-11-08 17:42 | NUR ---
SUMMARY PT SITTING UP IN BED WATCHING TV, PT HAS BEEN PLEASANT AND COOPERATIVE WITH CARE, PT/OT HAS WORKED WITH THE PT, PT'S DAUGHTER HAS BEEN IN TO VISIT, CARE MANAGEMENT WORKING ON THE DISCHARGE, VSS, NO ACUTE CHANGES, WILL CONT TO MONITOR
--- NOTE | 2018-11-09 01:30 | NUR ---
ASSUMED CARE OF PATIENT AT APPROXIMATELY 1905 FROM [facility] Ashley RN. PATIENT ALERT AND ORIENTED X4; WEAK; REPORTS LEFT LEG PAINFUL WHEN TURNING AND CHANGING ATTENDS Q2 HOURS. PATIENT REPORTED SHORTLY BEFORE MIDNIGHT SHE WAS PAIN FREE; REQUESTED PAIN PATCHES BUT THEY HAD BEEN REMOVED AFTER 12 HOURS. TAKES PILLS WHOLE IN APPLESAUCE. MEDICAL NO TELE; OXYGEN SATURATION ABOVE 90% ON 2LPM VIA NC (BASELINE). PATIENT HAS NUMBNESS, TINGLING, RESTLESS LEGS. DENIES DIZZINESS OR NAUSEA. PIV S/L. PATIENT CURRENTLY SLEEPING IN BED; CALL LIGHT IN REACH; BED IN LOWEST POSISTION; WILL CONTINUE TO MONITOR AND ASSESS UNTIL END OF SHIFT.
--- NOTE | 2018-11-09 06:24 | NUR ---
NO ACUTE CHANGES TO REPORT. PATIENT SLEPT ABOUT EIGHT HOURS LAST NIGHT; INCONTINENT OF LARGE AMOUNTS OF URINE EVERY Q2H TURN. WILL CONTINUE TO MONITOR AND ASSESS UNTIL END OF SHIFT.
[2018-11-09 08:33] LABS: Hematocrit 33.2 % (33.0-51.0); Hemoglobin 10.3 g/dL (11.5-16.0); Mean Corpuscular HGB 30.4 pg (26.0-34.0); Mean Corpuscular Volume 98 fL (80-100); Mean Platelet Volume 9.6 fL (9.1-12.4); Platelet Count 310 K/mm3 (150-400); RDW Coefficient Variation 11.7 % (11.7-14.2); RDW Standard Deviation 42.2 fL (35.1-46.3); Red Blood Cell Count 3.39 M/mm3 (3.80-5.20); White Blood Cell Count 4.86 K/mm3 (4.00-11.30)
[2018-11-09 08:49] LABS: Bun/Creatinine Ratio 23.1 (12.0-20.0); Calcium, Blood 8.5 mg/dL (8.5-10.1); Creatinine, Blood 1.04 mg/dL (0.40-1.00); Potassium, Blood 4.5 mmol/L (3.5-5.5)
--- NOTE | 2018-11-09 13:01 | NUR ---
Echocardiogram completed.
[2018-11-09] MEDS ORDERED: ACET500 PO (15:13)
[2018-11-09] MEDS ORDERED: LIDOCAINE1 EACH TOP (15:30)
--- NOTE | 2018-11-09 16:21 | NUR ---
notified facility of patient discharge this evening. Spoke with caregiver Ju on the phone about patient requiring a julia lift and unable to bear weight on the l leg. CAREGIVER HAD NO ADDITIONAL QUESTIONS FOR ME. DISCHARGE PAPERWORK PLACED IN PATIENTS PACKET.
--- NOTE | 2018-11-09 17:31 | NUR ---
NOTIFIED FACILITY OF NEED TO DISCONTINUE VALIUM AND KLONOPIN.
--- NOTE | 2018-11-09 17:48 | NUR ---
patient discharged via gurny. She was changed prior to getting on the gurny. NO ACUTE ISSUES NOTED AT TIME OF TRANSFER.
== END 2018-11-09 17:50 | disposition home or self-care (01) | DRG 71 ==
LOC: ER 12:51 → PCU 18:48 → EDBEDREQ 20:16 → EDBEDREQTM 20:16 → EDBEDREQSVC 20:16 → PCU 20:26 → MEDS 11-03 18:55
PROVIDERS: Internal Medicine; Physician Assistant; ADMIT Internal Medicine
DX: G93.41 Metabolic encephalopathy (principal); N39.0 Urinary tract infection, site not specified; J44.9 Chronic obstructive pulmonary disease, unspecified; Z87.891 Personal history of nicotine dependence; I48.0 Paroxysmal atrial fibrillation; G62.9 Polyneuropathy, unspecified; F03.90 Unspecified dementia, unspecified severity, without behavioral disturbance, psychotic disturbance, mood disturbance, and anxiety; Z66 Do not resuscitate; Z79.82 Long term (current) use of aspirin; Z79.899 Other long term (current) drug therapy; M17.12 Unilateral primary osteoarthritis, left knee; B96.20 Unspecified Escherichia coli [E. coli] as the cause of diseases classified elsewhere; G25.81 Restless legs syndrome
CPT/HCPCS: 36415; 70450; 73502; 73562-LT; 74176; 80048; 80053; 81001; 83735; 83880; 84484; 85025; 85027; 85651; 87077; 87086; 87186; 92526; 92610; 93005; 93010; 93306; 94760; 96361; 96365; 96375; 96376; 97110; 97161; 97166; 97530; 99285-25; J0153; J0696; J1170; J1885; J1956; J3010; J7030

== ENCOUNTER 2019-05-04 16:00 | Emergency (ER) | payer OTHER ==
[~2019-05-04] VITALS: Ht 175.3 cm; Wt 79.4 kg
[~2019-05-04 16:00] MED LIST changes: +ACET500 PO; -Albuterol2.5 MG/0.5 INH; -CHOL10002 PO; -Carbidopa-Levo1 EAC2 PO; +DIAZ5 PO; -DOCU100 PO; -FAMO20 PO; -GABA100 PO; -LO-DOSE ASPIRIN81 MG PO; -POTCHL10ER PO; -SENN187 PO; -SERT50 PO; -XARELTO20 MG PO
[2019-05-04] MEDS ORDERED: CIPR500 PO (16:33)
[2019-05-04] MEDS ORDERED: Oyster Shell C500 MG PO (16:35)
[2019-05-04] MEDS ORDERED: Milk Of Ma400 MG/5 M PO (16:35)
[2019-05-04] MEDS ORDERED: Adult Glycerin1 EACH PR (16:35)
[2019-05-04 17:30] LABS: BASOPHILS ABSOLUTE AUTO 0.04 K/mm3 (0.00-0.23); Mean Corpuscular HGB 31.9 pg (26.0-34.0); RDW Coefficient Variation 12.5 % (11.7-14.2)
[2019-05-04 17:39] LABS: BASOPHILS PERCENT AUTO 1 % (0-2); EOSINOPHILS ABSOLUTE AUTO 0.33 K/mm3 (0.00-0.68); EOSINOPHILS PERCENT AUTO 7 % (0-6); Hematocrit 37.3 % (33.0-51.0); Hemoglobin 12.2 g/dL (11.5-16.0); IMMATURE GRAN ABSOLUTE AUTO 0.03 K/mm3 (0.00-0.10); IMMATURE GRAN PERCENT AUTO 1 % (0-1); LYMPHOCYTES ABSOLUTE AUTO 1.65 K/mm3 (0.84-5.20); LYMPHOCYTES PERCENT AUTO 34 % (21-46); MONOCYTES ABSOLUTE AUTO 0.64 K/mm3 (0.16-1.47); MONOCYTES PERCENT AUTO 13 % (4-13); Mean Corpuscular HGB Conc 32.7 g/dL (31.5-36.5); Mean Corpuscular Volume 98 fL (80-100); Mean Platelet Volume 9.4 fL (9.1-12.4); NEUTROPHILS PERCENT AUTO 44 % (41-73); Platelet Count 268 K/mm3 (150-400); RDW Standard Deviation 44.8 fL (35.1-46.3); Red Blood Cell Count 3.82 M/mm3 (3.80-5.20); White Blood Cell Count 4.79 K/mm3 (4.00-11.30)
[2019-05-04 17:44] LABS: Alanine Aminotransfer (ALT/SGP 13 U/L (12-78); Albumin, Blood 3.4 g/dL (3.4-5.0); Albumin/Globulin Ratio 0.8 (0.8-1.8); Alk Phos 72 U/L (50-136); Anion Gap 6 mmol/L (6-16); Aspartate Aminotrans (AST/SGOT 21 U/L (12-37); Bilirubin, Total 0.2 mg/dL (0.1-1.0); Blood Urea Nitrogen 15 mg/dL (8-24); Bun/Creatinine Ratio 13.5 (12.0-20.0); CO2, Blood 30 mmol/L (21-32); Calcium, Blood 9.2 mg/dL (8.5-10.1); Chloride, Blood 96 mmol/L (98-108); Creatinine, Blood 1.11 mg/dL (0.40-1.00); Globulin, Blood 4.3 g/dL (2.2-4.0); Glomerular Filtration Rate 50 (60-); Glucose, Blood 96 mg/dL (70-99); Potassium, Blood 4.5 mmol/L (3.5-5.5); Sodium, Blood 132 mmol/L (136-145); Total Protein, Blood 7.7 g/dL (6.4-8.2); Troponin I <0.015 ng/mL (0.000-0.040)
[2019-05-04] MEDS ORDERED: ALBU90OI INH (19:03)
== END 2019-05-04 20:00 | disposition home or self-care (01) ==
LOC: ER 16:00
PROVIDERS: Emergency Medicine
DX: J98.01 Acute bronchospasm (principal); J44.9 Chronic obstructive pulmonary disease, unspecified; I11.0 Hypertensive heart disease with heart failure; I50.9 Heart failure, unspecified; F03.90 Unspecified dementia, unspecified severity, without behavioral disturbance, psychotic disturbance, mood disturbance, and anxiety; Z79.899 Other long term (current) drug therapy
CPT/HCPCS: 36415; 71046; 80053; 84484; 85025; 93005; 93010; 94640; 99285-25

== ENCOUNTER → 2019-05-18 | Outpatient (CLI) | payer OTHER ==
[~2019-05-18] MED LIST changes: +ALBU90OI INH; +Adult Glycerin1 EACH PR; +Albuterol2.5 MG/0.5 NEB; +Aspirin EC81 MG PO; +CHOL10002 PO; +Carbamazepine100 MG PO; +Carbidopa-Levo1 EAC2 PO; +Clonazepam0.25 MG PO; +DOCU100 PO; +FAMO20 PO; +Fentanyl1 EAC4 PO; +GABA100 PO; +METO25ER; +MIRALAX17 GM PO; +Milk Of Ma400 MG/5 M PO; +NAPR500 PO; +Opcon-A Eye Dro15 M1; +Oyster Shell C500 MG PO; +POTCHL10ER PO; +Ropinirole HCl1 MG PO; +SENN187 PO; +SERT50 PO; +Tobramycin60 MG/50 M; +XARELTO20 MG PO
[2019-05-18 13:28] LABS: Source, Urine Catheter
[2019-05-18 13:58] LABS: Bilirubin, Urine Neg (Neg); Blood, Urine 3+ (Neg); Glucose Qualitative, Urine Neg (Neg); Ketones, Urine Neg (Neg); Leukocyte Esterase, Urine 3+ (Neg); Nitrite, Urine Pos (Neg); Protein, Urine 2+ (Neg); Urobilinogen, Urine NORM (Normal); pH, Urine 6.5 (5.0-8.0)
[2019-05-18 14:32] LABS: Appearance, Urine Cloudy (Clear); Color, Urine Pale Yellow (P-Yellow)
[2019-05-18 14:33] LABS: White Blood Cells, Urine TNTC /hpf (0-5)
[2019-05-18 14:34] LABS: Bacteria Many /hpf; Squamous Epithelial Cells Not Seen /hpf (Few); Transitional Epithelial Cells Few /hpf (0-Rare)
== END | disposition home or self-care (01) ==
LOC: LAB SHORT 13:25 → LAB 13:25 → LAB HH 13:25
PROVIDERS: Legal Medicine
DX: N39.0 Urinary tract infection, site not specified (principal)
CPT/HCPCS: 81001; 87077; 87086; 87186

== ENCOUNTER 2019-05-23 16:13 | Observation (INO) | payer OTHER ==
[~2019-05-23] VITALS: Ht 175.3 cm; Wt 96.5 kg
[~2019-05-23 16:13] MED LIST changes: -Albuterol2.5 MG/0.5 NEB; -Aspirin EC81 MG PO; -CHOL10002 PO; -Carbamazepine100 MG PO; -Carbidopa-Levo1 EAC2 PO; -Clonazepam0.25 MG PO; -DOCU100 PO; -FAMO20 PO; -Fentanyl1 EAC4 PO; -GABA100 PO; -METO25ER; -MIRALAX17 GM PO; -NAPR500 PO; -Opcon-A Eye Dro15 M1; -POTCHL10ER PO; -Ropinirole HCl1 MG PO; -SENN187 PO; -SERT50 PO; -Tobramycin60 MG/50 M; -XARELTO20 MG PO
[2019-05-23] MEDS ORDERED: Aspirin EC81 MG PO (17:35)
[2019-05-23] MEDS ORDERED: Carbidopa-Levo1 EAC2 PO (17:35)
[2019-05-23] MEDS ORDERED: Ropinirole HCl1 MG PO (17:36)
[2019-05-23] MEDS ORDERED: Albuterol2.5 MG/0.5 NEB (17:37)
[2019-05-23] MEDS ORDERED: Carbamazepine100 MG PO (17:37)
[2019-05-23 17:38] LABS: BASOPHILS ABSOLUTE AUTO 0.04 K/mm3 (0.00-0.23); BASOPHILS PERCENT AUTO 0 % (0-2); EOSINOPHILS ABSOLUTE AUTO 0.07 K/mm3 (0.00-0.68); EOSINOPHILS PERCENT AUTO 1 % (0-6); Hematocrit 38.2 % (33.0-51.0); Hemoglobin 12.6 g/dL (11.5-16.0); IMMATURE GRAN ABSOLUTE AUTO 0.12 K/mm3 (0.00-0.10); IMMATURE GRAN PERCENT AUTO 1 % (0-1); LYMPHOCYTES ABSOLUTE AUTO 1.04 K/mm3 (0.84-5.20); LYMPHOCYTES PERCENT AUTO 10 % (21-46); MONOCYTES PERCENT AUTO 4 % (4-13); Mean Corpuscular HGB 31.9 pg (26.0-34.0); Mean Corpuscular Volume 97 fL (80-100); Mean Platelet Volume 9.2 fL (9.1-12.4); NEUTROPHILS ABSOLUTE AUTO 8.64 K/mm3 (1.96-9.15); NEUTROPHILS PERCENT AUTO 84 % (41-73); Platelet Count 362 K/mm3 (150-400); RDW Coefficient Variation 12.5 % (11.7-14.2); Red Blood Cell Count 3.95 M/mm3 (3.80-5.20); White Blood Cell Count 10.31 K/mm3 (4.00-11.30)
[2019-05-23] MEDS ORDERED: POTCHL10ER PO (17:38)
[2019-05-23] MEDS ORDERED: GABA100 PO (17:38)
[2019-05-23] MEDS ORDERED: FURO20 PO (17:39)
[2019-05-23] MEDS ORDERED: SENN187 PO (17:39)
[2019-05-23] MEDS ORDERED: FAMO20 PO (17:39)
[2019-05-23] MEDS ORDERED: DOCU100 PO (17:39)
[2019-05-23] MEDS ORDERED: NAPR500 PO (17:40)
[2019-05-23] MEDS ORDERED: Clonazepam0.25 MG PO (17:42)
[2019-05-23] MEDS ORDERED: CHOL10002 PO (17:42)
[2019-05-23] MEDS ORDERED: SERT50 PO (17:43)
[2019-05-23] MEDS ORDERED: XARELTO20 MG PO (17:44)
[2019-05-23] MEDS ORDERED: ALBU90OI61 INH (17:44)
[2019-05-23 17:46] LABS: Bun/Creatinine Ratio 28.1 (12.0-20.0); Calcium, Blood 9.3 mg/dL (8.5-10.1); Creatinine, Blood 1.14 mg/dL (0.40-1.00); Potassium, Blood 4.8 mmol/L (3.5-5.5)
[2019-05-23 17:50] LABS: Source, Urine Catheter
[2019-05-23 17:53] LABS: Bilirubin, Urine Neg (Neg); Blood, Urine 2+ (Neg); Glucose Qualitative, Urine Neg (Neg); Ketones, Urine Neg (Neg); Leukocyte Esterase, Urine 3+ (Neg); Nitrite, Urine Neg (Neg); Protein, Urine Neg (Neg); Specific Gravity, Urine 1.005 (1.003-1.022); Urobilinogen, Urine NORM (Normal)
[2019-05-23] MEDS ORDERED: Fentanyl1 EAC4 PO (18:03)
[2019-05-23 19:22] LABS: Appearance, Urine Hazy (Clear); Color, Urine Pale Yellow (P-Yellow); Red Blood Cells, Urine 0-2 /hpf (0-2)
[2019-05-23 19:23] LABS: Bacteria Many /hpf; Squamous Epithelial Cells Many /hpf (Few)
[2019-05-23] MEDS ORDERED: Opcon-A Eye Dro15 M1 (20:50)
[2019-05-23] MEDS ORDERED: METO25ER (21:02)
[2019-05-23] MEDS ORDERED: MIRALAX17 GM PO (21:03)
[2019-05-24 04:40] LABS: BASOPHILS ABSOLUTE AUTO 0.03 K/mm3 (0.00-0.23); BASOPHILS PERCENT AUTO 0 % (0-2); EOSINOPHILS ABSOLUTE AUTO 0.35 K/mm3 (0.00-0.68); EOSINOPHILS PERCENT AUTO 4 % (0-6); Hematocrit 36.2 % (33.0-51.0); Hemoglobin 11.7 g/dL (11.5-16.0); IMMATURE GRAN ABSOLUTE AUTO 0.06 K/mm3 (0.00-0.10); IMMATURE GRAN PERCENT AUTO 1 % (0-1); LYMPHOCYTES ABSOLUTE AUTO 2.43 K/mm3 (0.84-5.20); LYMPHOCYTES PERCENT AUTO 26 % (21-46); MONOCYTES ABSOLUTE AUTO 1.03 K/mm3 (0.16-1.47); MONOCYTES PERCENT AUTO 11 % (4-13); Mean Corpuscular HGB 31.7 pg (26.0-34.0); Mean Corpuscular HGB Conc 32.3 g/dL (31.5-36.5); Mean Corpuscular Volume 98 fL (80-100); Mean Platelet Volume 9.1 fL (9.1-12.4); NEUTROPHILS ABSOLUTE AUTO 5.37 K/mm3 (1.96-9.15); NEUTROPHILS PERCENT AUTO 58 % (41-73); Platelet Count 327 K/mm3 (150-400); RDW Coefficient Variation 12.4 % (11.7-14.2); RDW Standard Deviation 44.9 fL (35.1-46.3); Red Blood Cell Count 3.69 M/mm3 (3.80-5.20); White Blood Cell Count 9.27 K/mm3 (4.00-11.30)
[2019-05-24 04:59] LABS: Calcium, Blood 8.5 mg/dL (8.5-10.1); Creatinine, Blood 0.96 mg/dL (0.40-1.00); Potassium, Blood 4.2 mmol/L (3.5-5.5)
--- NOTE | 2019-05-24 05:10 | NUR ---
SHIFT SUMMARY: PATIENT ARRIVED TO THE FLOOR VIA GURNEY AT 2009, USED A SLIDER SHEET TO TRANFER TO BED. DAUGHTER IS AT BEDSIDE AND ASSIST IN ADMISSION INFORMATION. PATIENT ADMITTED DUE TO RECURRENT UTI'S OVER THE PAST 3 WEEKS WITH INCREASING SYMPTOMS OF WEAKNESS AND CONFUSION. DAUGHTER STATES THEY HAVE TRIED TO PUT HER ANITOBOTICS BUT THEY ARE NOT HELPING HER GET BETTER SO HER CAREGIVER HAS SENT HER HERE. HERIBERTO IS PLEASANT AND COOPERATIVE, AOX2, VIEJAS EVEN WITH HEARING AIDS IN. MUST SPEAK LOUD AND AT HER. YOU HAVE TO MAKE SURE SHE CAN UNDERSTAND YOU COMPLETLY SHE TENDS TO NOD HER HEAD TO EVERYTHING. SEE ADMISSION ASSESSMENT FOR DETAILS ON STATUS. SHE IS INCONTIENT OF URINE, WHICH SHE TENDS TO URINATE WITH EVERY MOVMENT SHE MAKES. IN ISOLATION FOR SUDO IN THE URINE. MEDS WERE GIVEN PER EMAR, IV PATENT AND INFUSING WITH NO PROBLEMS. SHE RESTED THROUGHOUT THE NIGHT WIHT NO ACUTE CHANGES. WILL REPORT TO DAY SHIFT RN.
--- NOTE | 2019-05-24 16:05 | NUR ---
SHIFT SUMMARY PATIENT CONTINUES TO BE INCONTINENT OF URINE. RESTLESS LEGS PAINFUL. MEDICATED PER EMAR. ABLE TO MAKE HER NEEDS KNOWN. WORKING TO HAVE PATIENT ROLL SELF IN BED TO WORK TO MAKE PATIENT INDEPENDENT HER ABILITY.
[2019-05-24 17:18] LABS: Tobramycin, Random 1.5 ug/mL
[2019-05-24 20:35] LABS: Tobramycin, Trough 1.2 ug/mL (0.0-1.9)
[2019-05-25 05:23] LABS: BASOPHILS ABSOLUTE AUTO 0.05 K/mm3 (0.00-0.23); BASOPHILS PERCENT AUTO 1 % (0-2); EOSINOPHILS ABSOLUTE AUTO 0.49 K/mm3 (0.00-0.68); EOSINOPHILS PERCENT AUTO 6 % (0-6); Hematocrit 36.2 % (33.0-51.0); Hemoglobin 11.7 g/dL (11.5-16.0); IMMATURE GRAN ABSOLUTE AUTO 0.07 K/mm3 (0.00-0.10); IMMATURE GRAN PERCENT AUTO 1 % (0-1); LYMPHOCYTES ABSOLUTE AUTO 3.02 K/mm3 (0.84-5.20); LYMPHOCYTES PERCENT AUTO 39 % (21-46); MONOCYTES ABSOLUTE AUTO 0.87 K/mm3 (0.16-1.47); MONOCYTES PERCENT AUTO 11 % (4-13); Mean Corpuscular HGB Conc 32.3 g/dL (31.5-36.5); Mean Corpuscular Volume 99 fL (80-100); Mean Platelet Volume 9.1 fL (9.1-12.4); NEUTROPHILS ABSOLUTE AUTO 3.31 K/mm3 (1.96-9.15); NEUTROPHILS PERCENT AUTO 42 % (41-73); Platelet Count 303 K/mm3 (150-400); RDW Coefficient Variation 12.7 % (11.7-14.2); RDW Standard Deviation 46.3 fL (35.1-46.3); Red Blood Cell Count 3.66 M/mm3 (3.80-5.20); White Blood Cell Count 7.81 K/mm3 (4.00-11.30)
--- NOTE | 2019-05-25 05:45 | NUR ---
SHIFT SUMMARY: GILA HAS BEEN PLEASANT AND COOPERATIVE. HAS DENIED ANY DISCOMFORTS OR PAIN. MEDS WERE GIVEN WITH APPLESAUCE WITH NO PROBLEMS. ANTIBOTIC TIME WAS CHANGED FROM PHARMACY DUE TO TROUGH NUMBERS. WILL BE DUE THIS AM. NO OTHER COMPLAINTS OR CONCERNS WERE NOTED. WILL REPORT TO DAY SHIFT RN.
[2019-05-25 05:56] LABS: Alanine Aminotransfer (ALT/SGP 10 U/L (12-78); Albumin, Blood 2.9 g/dL (3.4-5.0); Albumin/Globulin Ratio 0.8 (0.8-1.8); Alk Phos 55 U/L (50-136); Anion Gap 7 mmol/L (6-16); Aspartate Aminotrans (AST/SGOT 23 U/L (12-37); Bilirubin, Total 0.3 mg/dL (0.1-1.0); Blood Urea Nitrogen 23 mg/dL (8-24); Bun/Creatinine Ratio 24.9 (12.0-20.0); CO2, Blood 27 mmol/L (21-32); Calcium, Blood 8.2 mg/dL (8.5-10.1); Chloride, Blood 103 mmol/L (98-108); Creatinine, Blood 0.92 mg/dL (0.40-1.00); Globulin, Blood 3.6 g/dL (2.2-4.0); Glomerular Filtration Rate >60 (60-); Glucose, Blood 80 mg/dL (70-99); Potassium, Blood 4.2 mmol/L (3.5-5.5); Sodium, Blood 137 mmol/L (136-145); Total Protein, Blood 6.5 g/dL (6.4-8.2)
[2019-05-26 05:20] LABS: Anion Gap 6 mmol/L (6-16); Blood Urea Nitrogen 23 mg/dL (8-24); Bun/Creatinine Ratio 21.5 (12.0-20.0); CO2, Blood 31 mmol/L (21-32); Calcium, Blood 8.4 mg/dL (8.5-10.1); Chloride, Blood 103 mmol/L (98-108); Creatinine, Blood 1.07 mg/dL (0.40-1.00); Glomerular Filtration Rate 52 (60-); Glucose, Blood 87 mg/dL (70-99); Sodium, Blood 140 mmol/L (136-145); Tobramycin, Trough 0.8 ug/mL (0.0-1.9)
--- NOTE | 2019-05-26 05:46 | NUR ---
STRATEGIC PARTNER DEVELOPMENT MANAGER SUMMARY NO ACUTE CHANGES THISS SHIFT. PT AAOX3, VERY PLEASANT. PT IS EXTREMELY HARD OF HEARING. PT DENIES PAIN, SOB, N/V. HAS SLEPT MOST OF THE NIGHT. VSS, WILL CONTINUE TO MONITOR.
--- NOTE | 2019-05-26 13:49 | NUR ---
Initial Visit: Palliative Care Consult for Advanced Care Planning. Pt is A&Ox4 and denies pain, dyspnea, anxiety, and nausea. Pt reports living at [facility] and is well cared for. Pt denies any religous beliefs. Pt denies any concerns at this time. POLST already on file. Received verbal permission from Pt to call daughter Chen. Called and spoke with Pt's daughter Chen and engaged in therapeutic discussion regarding advanced care planning. Discussed Pt's comorbidities and Chen reports Pt does not have dementia. She states Pt was in hopitalized in the past and was given narcotics which caused confusion. She states Pt has not experienced any significant confusion since. Chen is agreeable that Pt has COPD. Encouraged Chen to accompany Pt to MD appointments and have routine discussion regarding disease process in order to plan accordingly. Chen requested for Pt to be discharged with a prescription for a therapeutic mattress and expresses concerns regarding transportation set up for ATC appointments. No other concerns reported at this time. Spoke with bedside nurse Rigoberto and she reports Chen's concerns have been relayed to hospice care consultant Abigail. Palliative Care will remain available.
[2019-05-26] MEDS ORDERED: Tobramycin60 MG/50 M (14:28)
--- NOTE | 2019-05-26 16:03 | NUR ---
PT DCD HOME TO [facility]. ALL INSTRUCTIONS REVIEWED WITH PT AND ALSO WITH CAREGIVER AND FAXED TO [facility]. IV DCD WITH NO ISSUE. ALL BELONGINGS SENT WITH PT. IV INFUSION SCHEDULED FOR THE NEXT 5 DAYS AT [facility] STARTING TOMORROW AT 7:30 AM AND TRANSPORT HAS BEEN ARRANGED. AIR MATTRESS WAS ALSO ORDERED THROUGH [facility] AND IS BEING DELIVERED BEFORE PT ARRIVAL HOME. DC PLAN WAS COMMUNICATED WITH CAREGIVER, [facility]ARTA WHO VERBALIZED AN UNDERSTANDING AND AGREES WITH PLAN. PT STABLE AND PLEASANT UPON DC.
== END 2019-05-26 16:06 | disposition home or self-care (01) ==
LOC: ER 16:13 → MEDS 16:14 → ER 18:17 → MEDS 18:17
PROVIDERS: Emergency Medicine; Internal Medicine; Nurse Practitioner Acute Care; Pharmacist; ADMIT Internal Medicine
DX: N39.0 Urinary tract infection, site not specified (principal); B96.5 Pseudomonas (aeruginosa) (mallei) (pseudomallei) as the cause of diseases classified elsewhere; I13.0 Hypertensive heart and chronic kidney disease with heart failure and stage 1 through stage 4 chronic kidney disease, or unspecified chronic kidney disease; I50.9 Heart failure, unspecified; N18.9 Chronic kidney disease, unspecified; J44.9 Chronic obstructive pulmonary disease, unspecified; R53.81 Other malaise; Z74.09 Other reduced mobility; Z16.30 Resistance to unspecified antimicrobial drugs; Z79.899 Other long term (current) drug therapy
CPT/HCPCS: 36415; 71045; 80048; 80053; 80200; 81001; 85025; 87077; 87086; 87186; 94760; 94762; 96365; 96367; 96372; 96376; 97110; 97161; 97530; 99285-25; A9270; C1751; G0378; J1650; J3260; J3480; J7030; P9612

== ENCOUNTER 2019-05-27 09:05 | Day surgery (SDC) | payer OTHER ==
[~2019-05-27 09:05] MED LIST changes: +Albuterol2.5 MG/0.5 NEB; +Aspirin EC81 MG PO; +CHOL10002 PO; +Carbamazepine100 MG PO; +Carbidopa-Levo1 EAC2 PO; +Clonazepam0.25 MG PO; +DOCU100 PO; +FAMO20 PO; +Fentanyl1 EAC4 PO; +GABA100 PO; +METO25ER; +MIRALAX17 GM PO; +NAPR500 PO; +Opcon-A Eye Dro15 M1; +POTCHL10ER PO; +Ropinirole HCl1 MG PO; +SENN187 PO; +SERT50 PO; +Tobramycin60 MG/50 M; +XARELTO20 MG PO
== END 2019-05-27 10:30 | disposition home or self-care (01) ==
LOC: ATC 09:05
DX: N39.0 Urinary tract infection, site not specified (principal); B96.5 Pseudomonas (aeruginosa) (mallei) (pseudomallei) as the cause of diseases classified elsewhere; M19.90 Unspecified osteoarthritis, unspecified site; I12.9 Hypertensive chronic kidney disease with stage 1 through stage 4 chronic kidney disease, or unspecified chronic kidney disease; N18.9 Chronic kidney disease, unspecified; J44.9 Chronic obstructive pulmonary disease, unspecified
CPT/HCPCS: 96365; J3260

== ENCOUNTER 2019-05-28 09:00 | Day surgery (SDC) | payer OTHER | END 2019-05-28 09:48 | disposition home or self-care (01) | LOC: ATC 09:00 | DX: N39.0 Urinary tract infection, site not specified (principal); B96.5 Pseudomonas (aeruginosa) (mallei) (pseudomallei) as the cause of diseases classified elsewhere; I12.9 Hypertensive chronic kidney disease with stage 1 through stage 4 chronic kidney disease, or unspecified chronic kidney disease; N18.9 Chronic kidney disease, unspecified; J44.9 Chronic obstructive pulmonary disease, unspecified | CPT/HCPCS: 96365; J3260 ==

== ENCOUNTER 2019-05-29 00:19 | Day surgery (SDC) | payer OTHER ==
--- NOTE | 2019-05-29 09:06 | NUR ---
LABS UNABLE TO BE DRAWN FROM EXT DWELL IV. LABS DRAW FROM RIGHT WRIST USING 23 G BUTTERFLY NEEDLE.
[2019-05-29 09:31] LABS: Creatinine, Blood 0.99 mg/dL (0.40-1.00); Tobramycin, Trough 1.1 ug/mL (0.0-1.9)
== END 2019-05-29 10:48 | disposition home or self-care (01) ==
LOC: ATC 00:19
PROVIDERS: Hospitalist
DX: N39.0 Urinary tract infection, site not specified (principal); B96.5 Pseudomonas (aeruginosa) (mallei) (pseudomallei) as the cause of diseases classified elsewhere; Z16.29 Resistance to other single specified antibiotic; I11.0 Hypertensive heart disease with heart failure; I50.9 Heart failure, unspecified; J43.9 Emphysema, unspecified; Z79.899 Other long term (current) drug therapy
CPT/HCPCS: 80200; 82565; 96365; J3260

== ENCOUNTER 2019-05-30 00:09 | Day surgery (SDC) | payer OTHER | END 2019-05-30 10:12 | disposition home or self-care (01) | LOC: ATC 00:09 | DX: N39.0 Urinary tract infection, site not specified (principal); B96.5 Pseudomonas (aeruginosa) (mallei) (pseudomallei) as the cause of diseases classified elsewhere; I12.9 Hypertensive chronic kidney disease with stage 1 through stage 4 chronic kidney disease, or unspecified chronic kidney disease; N18.9 Chronic kidney disease, unspecified; J44.9 Chronic obstructive pulmonary disease, unspecified | CPT/HCPCS: 96365; J3260 ==

== ENCOUNTER 2019-05-31 00:22 | Day surgery (SDC) | payer OTHER | END 2019-05-31 09:53 | disposition home or self-care (01) | LOC: ATC 00:22 | DX: N39.0 Urinary tract infection, site not specified (principal); B96.5 Pseudomonas (aeruginosa) (mallei) (pseudomallei) as the cause of diseases classified elsewhere; I10 Essential (primary) hypertension; Z66 Do not resuscitate | CPT/HCPCS: 96365; J3260 ==

== ENCOUNTER → 2019-06-01 | Outpatient (CLI) | payer OTHER ==
[2019-06-01 15:27] LABS: Source, Urine Clean Catch
[2019-06-01 15:36] LABS: Bilirubin, Urine Neg (Neg); Blood, Urine 1+ (Neg); Glucose Qualitative, Urine Neg (Neg); Ketones, Urine Neg (Neg); Leukocyte Esterase, Urine 3+ (Neg); Nitrite, Urine Neg (Neg); Protein, Urine Neg (Neg); Specific Gravity, Urine 1.015 (1.003-1.022); Urobilinogen, Urine NORM (Normal)
[2019-06-01 15:42] LABS: Appearance, Urine Hazy (Clear); Color, Urine Pale Yellow (P-Yellow)
[2019-06-01 15:43] LABS: White Blood Cells, Urine 25-50 /hpf (0-5)
[2019-06-01 15:44] LABS: Bacteria Mod /hpf; Squamous Epithelial Cells Many /hpf (Few)
== END | disposition home or self-care (01) ==
LOC: LAB HH 14:30
PROVIDERS: Legal Medicine
DX: I50.9 Heart failure, unspecified (principal); M62.81 Muscle weakness (generalized); N39.0 Urinary tract infection, site not specified; F03.90 Unspecified dementia, unspecified severity, without behavioral disturbance, psychotic disturbance, mood disturbance, and anxiety
CPT/HCPCS: 81001; 87077; 87086; 87186

== ENCOUNTER → 2019-06-16 | Outpatient (CLI) | payer OTHER ==
[2019-06-16 11:15] LABS: Source, Urine Catheter
[2019-06-16 11:18] LABS: Bilirubin, Urine Neg (Neg); Blood, Urine 5+ (Neg); Glucose Qualitative, Urine Neg (Neg); Ketones, Urine Neg (Neg); Leukocyte Esterase, Urine 2+ (Neg); Nitrite, Urine Neg (Neg); Protein, Urine 1+ (Neg); Urobilinogen, Urine NORM (Normal); pH, Urine 6.5 (5.0-8.0)
[2019-06-16 11:26] LABS: Appearance, Urine Hazy (Clear); Color, Urine Yellow (P-Yellow)
[2019-06-16 11:28] LABS: Bacteria Rare /hpf; Squamous Epithelial Cells Few /hpf (Few)
== END | disposition home or self-care (01) ==
LOC: LAB 09:30 → LAB SHORT 09:30
PROVIDERS: Legal Medicine
DX: M62.81 Muscle weakness (generalized) (principal); I11.0 Hypertensive heart disease with heart failure; I50.9 Heart failure, unspecified
CPT/HCPCS: 81001; 87077; 87086; 87186